=== PATIENT | male | born 1975 | race Caucasian/White ===

== ENCOUNTER 2021-02-08 19:35 | Emergency (ER) | payer OTHER | END 2021-02-08 21:02 | disposition left against medical advice (07) | LOC: CSHERS 19:35 | DX: Z53.21 Procedure and treatment not carried out due to patient leaving prior to being seen by health care provider (principal) | CPT/HCPCS: 93005; 93010 ==

== ENCOUNTER 2021-12-12 12:43 | Outpatient (CLI) | payer BC | END 2021-12-12 12:44 | disposition home or self-care (01) | LOC: CSHULT 12:43 | PROVIDERS: ATTEND Family Medicine | DX: N43.3 Hydrocele, unspecified (principal) | CPT/HCPCS: 76870; 93976 ==

== ENCOUNTER 2023-08-19 14:29 | Emergency (ER) | payer BC, OTHER ==
[2023-08-19] MEDS ORDERED: Bupivacaine PF 0.5% 30 ML VIAL ONE (15:58)
[2023-08-19] MEDS ORDERED: Bacitracin 1 PK ONE (17:37)
== END 2023-08-19 17:49 | disposition home or self-care (01) ==
LOC: CSHERS 14:29
DX: S61.215A Laceration without foreign body of left ring finger without damage to nail, initial encounter (principal); F17.290 Nicotine dependence, other tobacco product, uncomplicated; W29.0XXA Contact with powered kitchen appliance, initial encounter
CPT/HCPCS: 12002; 99282; J0665

== ENCOUNTER 2024-03-20 13:23 | Emergency (ER) | payer BC, OTHER ==
[2024-03-20] MEDS ORDERED: Lidocaine 1% (PF) 30 ML VIAL ONE (13:48)
[2024-03-20] MEDS ORDERED: Bacitracin 1 PK ONE (14:58)
== END 2024-03-20 15:05 | disposition home or self-care (01) ==
LOC: CSHERS 13:23
DX: S81.811A Laceration without foreign body, right lower leg, initial encounter (principal); S41.111A Laceration without foreign body of right upper arm, initial encounter; F17.290 Nicotine dependence, other tobacco product, uncomplicated; W29.0XXA Contact with powered kitchen appliance, initial encounter
CPT/HCPCS: 12004; 99283; J2001